=== PATIENT | male | born 1980 | race Caucasian/White ===

== ENCOUNTER 2023-12-21 04:50 | Emergency (ER) | payer BC, OTHER ==
[2023-12-21] MEDS: Iopamidol 612 MG/ML 100 ML Bottle IVPUSH ONE (05:19)
[2023-12-21] MEDS: Sodium Chloride 0.9% 1,000 ML IV ONE ×2 (05:20→06:28)
[2023-12-21] MEDS: Ondansetron 4 MG/2 ML SDV IVPUSH ONE (05:25)
[2023-12-21] MEDS: Famotidine 20 MG/2 ML SDV IVPUSH ONE (05:27)
[2023-12-21 05:28] LABS: BASOPHILS PERCENT AUTO 0.7 % (0.0-1.0); EOSINOPHILS PERCENT AUTO 1.9 % (1.0-3.0); HEMATOCRIT 45.2 % (40.0-54.0); HEMOGLOBIN 15.4 g/dL (14.0-18.0); LYMPHOCYTES PERCENT AUTO 20.4 % (20.5-50.1); MEAN CORPUSCULAR HEMOGLOBIN 30.3 pg (27.0-34.0); MEAN CORPUSCULAR HGB CONC 34.1 g/dL (33.0-35.0); MONOCYTES PERCENT AUTO 7.4 % (2-8); NEUTROPHILS PERCENT AUTO 69.6 % (42.2-75.2); PLATELET COUNT,PLT 249 10^3/uL (150-450); RED BLOOD CELL COUNT 5.08 10^6/uL (4.6-6.2); WHITE BLOOD CELL COUNT,WBC 7.2 10^3/uL (5.0-10.0)
[2023-12-21] MEDS: Morphine 2 MG/ML SYRINGE IVPUSH ONE (05:34)
[2023-12-21 05:38] LABS: A/G RATIO 1.6; ALBUMIN 4.2 g/dL (3.4-5.0); ANION GAP 12.9 mEq/L (7-13); BILIRUBIN TOTAL 1.5 mg/dL (0.2-1.0); BUN/CREATININE RATIO 16.4 (No establ ref range); CALCIUM 9.7 mg/dL (8.5-10.1); CREATININE 1.4 mg/dL (0.70-1.30); EST CRCL DRUG DOSING (CG) 73.13 mL/min; MAGNESIUM 2.1 mg/dL (1.8-2.4); POTASSIUM,K 3.9 mmol/L (3.5-5.1); PROTEIN TOTAL,TP 6.8 g/dL (6.4-8.2)
[2023-12-21] MEDS: Morphine 4 MG/ML Syringe IVPUSH ONE ×2 (06:12→07:25)
[2023-12-21] MEDS: Promethazine 25 MG/ML SDV IM ONE (06:12)
[2023-12-21 06:15] LABS: APPEARANCE,URINE CLEAR (CLEAR); BILIRUBIN,URINE NEGATIVE (NEGATIVE); COLOR,URINE YELLOW (YELLOW); GLUCOSE,URINE NEGATIVE (NEGATIVE); KETONES,URINE NEGATIVE (NEGATIVE); LEUKOCYTE ESTERASE,URINE NEGATIVE (NEGATIVE); NITRITE,URINE NEGATIVE (NEGATIVE); OCCULT BLOOD,URINE LARGE (NEGATIVE); PH,URINE 5.5 (5.0-9.0); PROTEIN,URINE TRACE (NEGATIVE); UROBILINOGEN,URINE 0.2 mg/dL (0.2-1.0)
[2023-12-21 06:28] LABS: WBC,URINE 0-5 /HPF (0-5/HPF)
[2023-12-21 06:29] LABS: BACTERIA,URINE FEW /HPF (0-FEW/HPF); EPITHELIAL CELLS,URINE RARE /HPF (NOT SEEN); MUCUS,URINE MODERATE /LPF (NOT SEEN); RBC,URINE 50-75 /HPF (0-5)
[2023-12-21 06:31] LABS: ETHANOL BLOOD MEDICAL < 3 mg/dL (0)
[2023-12-21] MEDS: Ketorolac 30 MG/ML SDV IVPUSH ONE (07:25)
[2023-12-21 09:05] VITALS: BP 122/62; PULSE 73
== END 2023-12-21 09:25 | disposition home or self-care (01) ==
LOC: DL.ED 04:50
DX: N13.2 Hydronephrosis with renal and ureteral calculous obstruction (principal); N17.9 Acute kidney failure, unspecified; E86.9 Volume depletion, unspecified; I10 Essential (primary) hypertension; K21.9 Gastro-esophageal reflux disease without esophagitis; F17.200 Nicotine dependence, unspecified, uncomplicated; Z79.899 Other long term (current) drug therapy; Z79.1 Long term (current) use of non-steroidal anti-inflammatories (NSAID); Z88.0 Allergy status to penicillin
CPT/HCPCS: 36415; 74178; 80053; 80307; 81001; 83690; 83735; 84484; 85025; 96361; 96372; 96374; 96375; 96376; 99284; J1885; J2270; J2405; J2550; J3490; J7030; Q9967